=== PATIENT | male | born 1950 | race Caucasian/White ===

== ENCOUNTER 2021-02-22 11:09 | Inpatient (IN) ==
[2021-02-22] MEDS ORDERED: SODIUM CHLORIDE 0.9% 1,000 ML IV STA (11:41)
[2021-02-22] MEDS ORDERED: ONDANSETRON 4 MG/2 ML VIAL IV STA (11:41)
[2021-02-22 11:54] LABS: Basophils % 0.2 % (0.0-0.8); Eosinophils % 0.4 % (0.00-10.9); Hematocrit 34.4 VOL% (42.0-52.0); Hemoglobin 12.5 GM/DL (14.0-18.0); Immature Granulocytes % 0.5 %; Immature Granulocytes Absolute 0.05 #; Lymphocytes # 1.1 10*3/uL (1.4-4.0); Lymphocytes % 12.1 % (21.2-54.2); Mean Corpuscular HGB Conc 36.3 GM/DL (32-36); Mean Corpuscular Volume 98.6 FL (87-102); Mean Platelet Volume 10.4 FL (9.6-12.0); Monocytes % 5.4 % (1.7-12.7); Neutrophils % 81.4 % (38.7-73.9); Platelet Count 143 T/CUMM (130-400); Red Blood Count 3.49 MC/CUMM (3.8-5.5); Red Cell Distribution Width 12.7 % (9.3-17.3); White Blood Count 9.3 T/CUMM (4-12)
[2021-02-22 12:15] LABS: Albumin 2.8 G/DL (3.4-5.0); Bilirubin,Total 3.9 MG/DL (0.2-1.0); Calcium 7.6 MG/DL (8.5-10.1); Osmolality,Calculated 278.2 MOS/KG (273-304); Total Protein 7.3 G/DL (6.4-8.2)
[2021-02-22 12:24] LABS: Potassium 2.1 MMOL/L (3.5-5.1)
[2021-02-22] MEDS: POTASSIUM CHLORIDE RIDER 10 MEQ in PREMIX 1 EACH IV SCH ×5 (12:44→20:02)
[2021-02-22] MEDS ORDERED: BISACODYL 5 MG TABLET PO PRN (13:42)
[2021-02-22] MEDS ORDERED: ACETAMINOPHEN 325 MG TABLET PO PRN (13:42)
[2021-02-22] MEDS ORDERED: ALBUTEROL/IPRATROPIUM 3 ML NEB RESP TX PRN (13:42)
[2021-02-22] MEDS ORDERED: HYDROmorphone 2 MG/1 ML VIAL IV PRN ×2 (13:42)
[2021-02-22] MEDS ORDERED: LEVOFLOXACIN INJ 500 MG/100 ML PREMIX IV STA (13:47)
[2021-02-22] MEDS ORDERED: LACTATED RINGERS 1,000 ML IV ONE (13:51)
[2021-02-22] MEDS ORDERED: LEVOFLOXACIN INJ 750 MG/150 ML PREMIX IV ONE (14:13)
[2021-02-22] MEDS: LEVOFLOXACIN INJ 750 MG/150 ML PREMIX IV SCH (14:17)
[2021-02-22] MEDS: metroNIDAZOLE INJ 500 MG/100 ML PREMIX IV SCH ×2 (16:43→22:36)
[2021-02-22] MEDS ORDERED: ALPRAZolam 0.5 MG TABLET PO PRN (16:50)
[2021-02-22] MEDS ORDERED: GLUCAGON 1 MG VIAL IM PRN (16:50)
[2021-02-22] MEDS ORDERED: DEXTROSE 50% 25 GM/50 ML VIAL IV PRN (16:50)
[2021-02-22] MEDS ORDERED: INSULIN LISPRO 100 UNIT/ML SUBCUT SCH (17:00)
[2021-02-22 18:27] LABS: Bilirubin,Urine Negative (Negative); Blood, Urine Small mg/dL (Negative); Glucose,Urine (UA) >=500 mg/dL (Negative); Hyaline Casts,Urine 5 /LPF (0-3); Ketones,Urine 5 mg/dL (Negative); Nitrite,Urine Negative (Negative); Protein,Urine Negative; RBC,Urine 2 /HPF (0-4); Squamous Epithelial Cell,Urine Occasional /HPF (0-10); Urine Appearance CLEAR (Clear); Urine Color Amber (Yellow); Urine Specific Gravity 1.016 (1.001-1.035)
[2021-02-22] MEDS: ONDANSETRON 4 MG/2 ML VIAL IV PRN (20:02)
[2021-02-23] MEDS: POTASSIUM CHLORIDE RIDER 10 MEQ in PREMIX 1 EACH IV PRN ×7 (00:14→06:32)
[2021-02-23] MEDS: PROMETHAZINE 25 MG/1 ML VIAL IM PRN ×3 (00:19→20:14)
[2021-02-23] MEDS: ONDANSETRON 4 MG/2 ML VIAL IV PRN ×2 (02:33→15:43)
[2021-02-23 05:24] LABS: Basophils % 0.3 % (0.0-0.8); Hematocrit 32.5 VOL% (42.0-52.0); Hemoglobin 11.4 GM/DL (14.0-18.0); Immature Granulocytes % 0.4 %; Immature Granulocytes Absolute 0.03 #; Lymphocytes # 0.7 10*3/uL (1.4-4.0); Lymphocytes % 8.4 % (21.2-54.2); Mean Corpuscular HGB Conc 35.1 GM/DL (32-36); Mean Corpuscular Volume 101.6 FL (87-102); Mean Platelet Volume 10.6 FL (9.6-12.0); Monocytes % 4.1 % (1.7-12.7); Neutrophils % 86.8 % (38.7-73.9); Platelet Count 106 T/CUMM (130-400); Red Cell Distribution Width 12.6 % (9.3-17.3); White Blood Count 7.8 T/CUMM (4-12)
[2021-02-23 05:37] LABS: Albumin 2.3 G/DL (3.4-5.0); Bilirubin,Total 2.7 MG/DL (0.2-1.0); Calcium 6.6 MG/DL (8.5-10.1); Osmolality,Calculated 280.4 MOS/KG (273-304); Potassium 2.7 MMOL/L (3.5-5.1); Total Protein 5.9 G/DL (6.4-8.2)
[2021-02-23] MEDS: metroNIDAZOLE INJ 500 MG/100 ML PREMIX IV SCH ×2 (07:17→15:04)
[2021-02-23] MEDS ORDERED: MAGNESIUM SULF RIDER 4 GM/100 ML PREMIX IV PRN (07:47)
[2021-02-23] MEDS ORDERED: DEXTROSE 50% 25 GM/50 ML VIAL IV PRN (07:48)
[2021-02-23] MEDS ORDERED: GLUCAGON 1 MG VIAL IM PRN (07:48)
[2021-02-23] MEDS: INSULIN LISPRO 100 UNIT/ML SUBCUT SCH ×3 (07:53→17:13)
[2021-02-23] MEDS: PANTOPRAZOLE 40 MG VIAL IV SCH (09:18)
[2021-02-24] MEDS: metroNIDAZOLE INJ 500 MG/100 ML PREMIX IV SCH ×4 (00:30→23:24)
[2021-02-24] MEDS: INSULIN LISPRO 100 UNIT/ML SUBCUT SCH ×4 (00:32→17:03)
[2021-02-24] MEDS: PROMETHAZINE 25 MG/1 ML VIAL IM PRN ×2 (02:12→11:10)
[2021-02-24 07:56] LABS: Basophils % 0.3 % (0.0-0.8); Eosinophils # 0.1 10*3/uL (0.0-0.87); Eosinophils % 1.5 % (0.00-10.9); Hematocrit 30.2 VOL% (42.0-52.0); Immature Granulocytes % 0.3 %; Immature Granulocytes Absolute 0.02 #; Lymphocytes # 1.3 10*3/uL (1.4-4.0); Lymphocytes % 20.7 % (21.2-54.2); Mean Corpuscular HGB Conc 36.4 GM/DL (32-36); Mean Corpuscular Volume 99.7 FL (87-102); Monocytes % 6.8 % (1.7-12.7); Neutrophils % 70.4 % (38.7-73.9); Platelet Count 103 T/CUMM (130-400); Red Blood Count 3.03 MC/CUMM (3.8-5.5); Red Cell Distribution Width 12.7 % (9.3-17.3); White Blood Count 6.1 T/CUMM (4-12)
[2021-02-24 08:18] LABS: Albumin 2.3 G/DL (3.4-5.0); Bilirubin,Direct 1.33 MG/DL (0.0-0.20); Bilirubin,Indirect 0.5 MG/DL (0.0-1.0); Bilirubin,Total 1.8 MG/DL (0.2-1.0); Osmolality,Calculated 285.4 MOS/KG (273-304); Potassium 2.6 MMOL/L (3.5-5.1); Total Protein 5.9 G/DL (6.4-8.2)
[2021-02-24] MEDS: PANTOPRAZOLE 40 MG VIAL IV SCH (08:28)
[2021-02-24] MEDS: LEVOFLOXACIN INJ 750 MG/150 ML PREMIX IV SCH (14:56)
[2021-02-24] MEDS: POTASSIUM CHLORIDE RIDER 10 MEQ in PREMIX 1 EACH IV PRN ×2 (17:30→21:27)
[2021-02-24] MEDS: LORazepam 1 MG TABLET PO PRN (20:42)
[2021-02-25] MEDS: INSULIN LISPRO 100 UNIT/ML SUBCUT SCH ×4 (00:22→17:04)
[2021-02-25] MEDS: POTASSIUM CHLORIDE RIDER 10 MEQ in PREMIX 1 EACH IV PRN ×2 (01:37→05:59)
[2021-02-25] MEDS: ONDANSETRON 4 MG/2 ML VIAL IV PRN (05:26)
[2021-02-25 06:33] LABS: Basophils % 0.2 % (0.0-0.8); Eosinophils # 0.1 10*3/uL (0.0-0.87); Eosinophils % 0.9 % (0.00-10.9); Hematocrit 32.4 VOL% (42.0-52.0); Hemoglobin 11.7 GM/DL (14.0-18.0); Immature Granulocytes % 0.5 %; Immature Granulocytes Absolute 0.03 #; Lymphocytes # 1.1 10*3/uL (1.4-4.0); Lymphocytes % 17.7 % (21.2-54.2); Mean Corpuscular HGB Conc 36.1 GM/DL (32-36); Mean Corpuscular Volume 100.3 FL (87-102); Mean Platelet Volume 9.8 FL (9.6-12.0); Neutrophils % 73.7 % (38.7-73.9); Platelet Count 106 T/CUMM (130-400); Red Blood Count 3.23 MC/CUMM (3.8-5.5); Red Cell Distribution Width 12.6 % (9.3-17.3); White Blood Count 6.3 T/CUMM (4-12)
[2021-02-25 07:12] LABS: Albumin 2.3 G/DL (3.4-5.0); Bilirubin,Direct 1.25 MG/DL (0.0-0.20); Bilirubin,Indirect 1.3 MG/DL (0.0-1.0); Bilirubin,Total 2.5 MG/DL (0.2-1.0); Calcium 7.1 MG/DL (8.5-10.1); Osmolality,Calculated 283.4 MOS/KG (273-304); Potassium 2.6 MMOL/L (3.5-5.1)
[2021-02-25] MEDS: PROMETHAZINE 25 MG/1 ML VIAL IM PRN ×2 (07:55→14:04)
[2021-02-25] MEDS: metroNIDAZOLE INJ 500 MG/100 ML PREMIX IV SCH (07:56)
[2021-02-25] MEDS: PANTOPRAZOLE 40 MG VIAL IV SCH (07:59)
[2021-02-25] MEDS: MAGNESIUM SULF RIDER 2 GM/50 ML PREMIX IV PRN ×2 (14:03→16:08)
[2021-02-25] MEDS: DEXT 5% NACL 0.45% KCL 20 MEQ 20 MEQ/1,000 ML BAG IV SCH (17:17)
[2021-02-26] MEDS: INSULIN LISPRO 100 UNIT/ML SUBCUT SCH ×4 (01:52→17:13)
[2021-02-26 05:49] LABS: Basophils % 0.3 % (0.0-0.8); Eosinophils % 0.5 % (0.00-10.9); Hematocrit 32.9 VOL% (42.0-52.0); Hemoglobin 11.7 GM/DL (14.0-18.0); Immature Granulocytes % 0.4 %; Immature Granulocytes Absolute 0.03 #; Lymphocytes # 1.5 10*3/uL (1.4-4.0); Lymphocytes % 19.9 % (21.2-54.2); Mean Corpuscular HGB Conc 35.6 GM/DL (32-36); Mean Corpuscular Volume 100.6 FL (87-102); Mean Platelet Volume 10.2 FL (9.6-12.0); Monocytes % 6.4 % (1.7-12.7); Neutrophils % 72.5 % (38.7-73.9); Platelet Count 115 T/CUMM (130-400); Red Blood Count 3.27 MC/CUMM (3.8-5.5); Red Cell Distribution Width 12.4 % (9.3-17.3); White Blood Count 7.3 T/CUMM (4-12)
[2021-02-26 06:22] LABS: Albumin 2.1 G/DL (3.4-5.0); Bilirubin,Direct 1.02 MG/DL (0.0-0.20); Bilirubin,Indirect 1.3 MG/DL (0.0-1.0); Bilirubin,Total 2.3 MG/DL (0.2-1.0); Osmolality,Calculated 284.4 MOS/KG (273-304); Potassium 2.6 MMOL/L (3.5-5.1)
[2021-02-26] MEDS: DEXT 5% NACL 0.45% KCL 20 MEQ 20 MEQ/1,000 ML BAG IV SCH ×3 (07:08→16:49)
[2021-02-26] MEDS: LORazepam 1 MG TABLET PO PRN ×2 (07:46→18:05)
[2021-02-26] MEDS: ONDANSETRON 4 MG/2 ML VIAL IV PRN ×2 (07:47→18:06)
[2021-02-26] MEDS: PANTOPRAZOLE 40 MG VIAL IV SCH (08:33)
[2021-02-26] MEDS: MAGNESIUM SULF RIDER 2 GM/50 ML PREMIX IV PRN (08:33)
[2021-02-26] MEDS: POTASSIUM CHLORIDE RIDER 10 MEQ in PREMIX 1 EACH IV PRN ×5 (08:34→14:40)
[2021-02-26] MEDS ORDERED: SODIUM CHLORIDE 0.65% NASAL SPRAY 45 ML BOTTLE BOTH NARES PRN (14:05)
[2021-02-26] MEDS: CETIRIZINE 10 MG TABLET PO SCH (14:38)
[2021-02-26] MEDS: PROMETHAZINE 25 MG/1 ML VIAL IM PRN (23:50)
[2021-02-27] MEDS: INSULIN LISPRO 100 UNIT/ML SUBCUT SCH ×3 (00:41→11:07)
[2021-02-27] MEDS: POTASSIUM CHLORIDE RIDER 10 MEQ in PREMIX 1 EACH IV PRN ×5 (03:24→09:04)
[2021-02-27 05:44] LABS: Basophils % 0.1 % (0.0-0.8); Eosinophils # 0.1 10*3/uL (0.0-0.87); Eosinophils % 1.3 % (0.00-10.9); Hematocrit 31.4 VOL% (42.0-52.0); Hemoglobin 11.4 GM/DL (14.0-18.0); Immature Granulocytes % 0.1 %; Immature Granulocytes Absolute 0.01 #; Lymphocytes # 1.2 10*3/uL (1.4-4.0); Lymphocytes % 16.2 % (21.2-54.2); Mean Corpuscular HGB Conc 36.3 GM/DL (32-36); Mean Corpuscular Volume 99.4 FL (87-102); Mean Platelet Volume 10.5 FL (9.6-12.0); Monocytes % 5.8 % (1.7-12.7); Neutrophils % 76.5 % (38.7-73.9); Platelet Count 107 T/CUMM (130-400); Red Blood Count 3.16 MC/CUMM (3.8-5.5); Red Cell Distribution Width 12.3 % (9.3-17.3); White Blood Count 7.1 T/CUMM (4-12)
[2021-02-27 06:02] LABS: Albumin 2.2 G/DL (3.4-5.0); Bilirubin,Direct 0.85 MG/DL (0.0-0.20); Osmolality,Calculated 274.1 MOS/KG (273-304); Potassium 2.7 MMOL/L (3.5-5.1); Total Protein 5.9 G/DL (6.4-8.2)
[2021-02-27 06:11] LABS: Hypochromasia Slight; Microcytosis Slight; Platelet Estimate Decreased
[2021-02-27] MEDS: DEXT 5% NACL 0.45% KCL 20 MEQ 20 MEQ/1,000 ML BAG IV SCH (06:44)
[2021-02-27] MEDS: CETIRIZINE 10 MG TABLET PO SCH (09:03)
[2021-02-27] MEDS: PANTOPRAZOLE 40 MG VIAL IV SCH (09:04)
[2021-02-27 11:32] VITALS: BP 116/77
== END 2021-02-27 11:34 | disposition home or self-care (01) | DRG 433 ==
LOC: N.ED 11:09 → N.EDINP 13:42 → N.3E 14:40
PROVIDERS: ADMIT Surgery; ATTEND Surgery